=== PATIENT | male | born 1955 ===

== ENCOUNTER 2017-05-31 23:54 | Observation (INO) | payer MEDICARE, OTHER ==
[2017-06-01 00:38] LABS: ADD MAN DIFF? NO
[2017-06-01 00:40] LABS: BASOPHILS % 0.1 % (0.0-2.0); EOSINOPHILS # 0.2 10^3/ul (0.0-0.5); EOSINOPHILS % 2.7 % (0.0-7.0); HEMATOCRIT 31.3 % (42.0-52.0); HEMOGLOBIN 10.7 g/dl (14.0-18.0); LYMPHOCYTES # 1.5 10^3/ul (0.8-2.9); LYMPHOCYTES % 20.3 % (15.0-51.0); MEAN CORPUSCULAR HEMOGLOBIN 32.5 pg (29.0-33.0); MEAN CORPUSCULAR HGB CONC 34.2 g/dl (32.0-37.0); MEAN CORPUSCULAR VOLUME 95.1 fl (82.0-101.0); MEAN PLATELET VOLUME 10.4 fl (7.4-10.4); MONOCYTE # 0.5 10^3/ul (0.3-0.9); MONOCYTES % 6.4 % (0.0-11.0); NEUTROPHIL # 5.2 10^3/ul (1.6-7.5); NEUTROPHILS % 70.2 % (39.0-77.0); PLATELET COUNT 177 10^3/UL (140-415); RED BLOOD COUNT 3.29 10^6/ul (4.70-6.10); RED CELL DISTRIBUTION WIDTH 12.1 % (11.5-14.5)
[2017-06-01 00:40] LABS: WHITE BLOOD COUNT 7.4 10^3/ul (4.8-10.8)
[2017-06-01 00:59] LABS: ALANINE AMINOTRANSFERASE 24 IU/L (13-69); ALBUMIN/GLOBULIN RATIO 1.42; ALKALINE PHOSPHATASE 100 IU/L (42-121); ANION GAP 34 (8-16); ASPARTATE AMINO TRANSFERASE 9 IU/L (15-46); BLOOD UREA NITROGEN 118 mg/dl (7-20); CALCIUM 9.3 mg/dl (8.4-10.2); CARBON DIOXIDE 19 mmol/L (21-31); CHLORIDE 96 mmol/L (97-110); GLUCOSE 89 mg/dl (70-220); POTASSIUM 5.5 mmol/L (3.5-5.1); SODIUM 143 mmol/L (135-144); TOTAL PROTEIN 6.8 g/dl (6.1-8.1)
[2017-06-01 01:10] LABS: B-TYPE NATRIURETIC PEPTIDE 12000 PG/ML (0-125); CREATININE 15.21 mg/dl (0.61-1.24)
[2017-06-01 01:11] LABS: INR 1.06; PROTIME 13.9 Sec (11.9-14.9); PT RATIO 1.1
[2017-06-01 01:12] LABS: PARTIAL THROMBOPLASTIN TIME 33.9 Sec (25.0-35.0)
[2017-06-01] MEDS ORDERED: NACL 0.9% 3 ML SYG IV (06:30)
[2017-06-01] MEDS ORDERED: ALBUTEROL/IPRATROPIUM (NEB) 3 ML AMP HHN (06:30)
[2017-06-01] MEDS ORDERED: ONDANSETRON 4 MG INJ IV (06:30)
[2017-06-01] MEDS ORDERED: morphine 2 MG INJ IV (06:30)
[2017-06-01] MEDS ORDERED: ACETAMINOPHEN 325 MG TAB PO (06:30)
[2017-06-01 06:41] LABS: TROPONIN-I 0.033 ng/ml (0.00-0.12)
[2017-06-01 06:42] LABS: CK INDEX 2.1
[2017-06-01 06:54] LABS: CK-MB 1.97 ng/ml (0.0-2.4)
[2017-06-01 07:01] LABS: CREATINE KINASE 92 IU/L (23-200)
[2017-06-01] MEDS: NA BICARBONATE 8.4% 50 ML SYG IV (08:01)
[2017-06-01] MEDS: FUROSEMIDE 20 MG INJ IV (08:01)
[2017-06-01 12:46] LABS: CREATINE KINASE 83 IU/L (23-200)
[2017-06-01 12:58] LABS: TROPONIN-I 0.022 ng/ml (0.00-0.12)
[2017-06-01 13:06] LABS: CK-MB 1.64 ng/ml (0.0-2.4)
[2017-06-01 14:31] LABS: HEPATITIS B SURFACE ANTIBODY POSITIVE (NEGATIVE)
[2017-06-01 14:44] LABS: HEPATITIS B SURFACE ANTIGEN NEGATIVE (NEGATIVE)
[2017-06-01 15:01] LABS: HEPATITIS C VIRAL ANTIBODY NEGATIVE (NEGATIVE)
[2017-06-01 21:54] LABS: TIME 2150
[2017-06-01 21:55] LABS: SITE Right Upper Forearm
[2017-06-02 05:47] LABS: ADD MAN DIFF? NO
[2017-06-02 05:56] LABS: WHITE BLOOD COUNT 8.9 10^3/ul (4.8-10.8)
[2017-06-02 05:56] LABS: BASOPHILS % 0.2 % (0.0-2.0); EOSINOPHILS # 0.1 10^3/ul (0.0-0.5); EOSINOPHILS % 1.6 % (0.0-7.0); HEMATOCRIT 36.2 % (42.0-52.0); HEMOGLOBIN 12.2 g/dl (14.0-18.0); LYMPHOCYTES # 1.4 10^3/ul (0.8-2.9); LYMPHOCYTES % 15.9 % (15.0-51.0); MEAN CORPUSCULAR HEMOGLOBIN 32.3 pg (29.0-33.0); MEAN CORPUSCULAR HGB CONC 33.7 g/dl (32.0-37.0); MEAN CORPUSCULAR VOLUME 95.8 fl (82.0-101.0); MEAN PLATELET VOLUME 10.5 fl (7.4-10.4); MONOCYTE # 0.7 10^3/ul (0.3-0.9); MONOCYTES % 7.4 % (0.0-11.0); NEUTROPHIL # 6.6 10^3/ul (1.6-7.5); NEUTROPHILS % 74.3 % (39.0-77.0); PLATELET COUNT 223 10^3/UL (140-415); RED BLOOD COUNT 3.78 10^6/ul (4.70-6.10); RED CELL DISTRIBUTION WIDTH 11.9 % (11.5-14.5)
[2017-06-02 06:29] LABS: ALANINE AMINOTRANSFERASE 23 IU/L (13-69); ALBUMIN 4.2 g/dl (3.3-4.9); ALBUMIN/GLOBULIN RATIO 1.23; ALKALINE PHOSPHATASE 91 IU/L (42-121); ANION GAP 25 (8-16); ASPARTATE AMINO TRANSFERASE 17 IU/L (15-46); BILIRUBIN,INDIRECT 0.1 mg/dl (0-1.1); BILIRUBIN,TOTAL 0.1 mg/dl (0.2-1.3); BLOOD UREA NITROGEN 66 mg/dl (7-20); CALCIUM 9.5 mg/dl (8.4-10.2); CARBON DIOXIDE 26 mmol/L (21-31); CHLORIDE 97 mmol/L (97-110); CREATININE 10.62 mg/dl (0.61-1.24); GLUCOSE 92 mg/dl (70-220); MAGNESIUM 2.2 mg/dl (1.7-2.5); POTASSIUM 4.8 mmol/L (3.5-5.1); SODIUM 143 mmol/L (135-144); TOTAL PROTEIN 7.6 g/dl (6.1-8.1)
[2017-06-02] MEDS: FUROSEMIDE 20 MG INJ IV (07:48)
== END 2017-06-02 15:14 | disposition home or self-care (01) ==
LOC: E/R 23:54 → MS3 06-01 03:03
DX: N18.6 End stage renal disease (principal); E87.5 Hyperkalemia; Z99.2 Dependence on renal dialysis; D63.1 Anemia in chronic kidney disease; N19 Unspecified kidney failure; G93.41 Metabolic encephalopathy; M89.8X9 Other specified disorders of bone, unspecified site
CPT/HCPCS: 71045; 80053; 82550; 82553; 83735; 83880; 84484; 85025; 85610; 85730; 86580; 86706; 86803; 87340; 90935; 93005; 99217; 99285-25; J1940